=== PATIENT | female | born 1945 ===

== ENCOUNTER 2019-07-11 10:13 | Outpatient (CLI) | payer OTHER | END 2019-07-11 10:15 | disposition home or self-care (01) | LOC: SONOGRAMA 10:13 | DX: E04.1 Nontoxic single thyroid nodule (principal) ==

== ENCOUNTER 2020-07-13 07:16 | Outpatient (CLI) | payer OTHER | END 2020-07-13 07:25 | disposition home or self-care (01) | LOC: SONOGRAMA 07:16 → MAMO-SONO 09:15 | PROVIDERS: ATTEND Surgery | DX: E04.2 Nontoxic multinodular goiter (principal) ==